=== PATIENT | female | born 1980 | race Caucasian/White ===

== ENCOUNTER 2018-05-11 11:03 | Inpatient (IN) | payer OTHER ==
[~2018-05-11] VITALS: Ht 162.6 cm; Wt 90.3 kg
[2018-05-11] MEDS ORDERED: SYNTHROID112 MCG PO (11:19)
[2018-05-11] MEDS ORDERED: PRENATAL TABLE1 EAC1 PO (11:20)
[2018-05-14] MEDS ORDERED: OXYC1TAB9 PO (09:26)
[2018-05-14] MEDS ORDERED: PRENATAL TABLE1 EAC1 PO (09:26)
[2018-05-14] MEDS ORDERED: DOCUSATE SODIU100 MG PO (09:26)
== END 2018-05-14 12:17 | DRG 766 ==
LOC: OB/GYN 11:03 → LDR 11:03 → O/R 13:18 → OB/GYN 15:29
PROVIDERS: Obstetrics & Gynecology
PROC: 4A033R1 Measurement of Arterial Saturation, Peripheral, Percutaneous Approach (ICD-10-PCS; 2018-05-11)
PROC: 4A1HXCZ Monitoring of Products of Conception, Cardiac Rate, External Approach (ICD-10-PCS; 2018-05-11)
PROC: 10D00Z1 Extraction of Products of Conception, Low, Open Approach (ICD-10-PCS; principal; 2018-05-11 11:00)
DX: O99.284 Endocrine, nutritional and metabolic diseases complicating childbirth (principal); E03.8 Other specified hypothyroidism; Z3A.39 39 weeks gestation of pregnancy; Z37.0 Single live birth